=== PATIENT | male | born 1940 | race Caucasian/White ===

== ENCOUNTER 2018-04-11 07:55 | Day surgery (SDC) | payer MEDICARE, OTHER, SELFPAY ==
[2018-04-11] MEDS: SODIUM CHLORIDE 0.9% 1,000 ML 200 ML IV (08:15)
[2018-04-11 08:19] VITALS: BP 153/84; PULSE 54; RESP 15; TEMP 36.3; O2SAT 99; BMI 32.0
--- NOTE | 2018-04-11 09:26 | PM.HP.1 ---
History of Present Illness Date Patient Seen: 04/11/18 Time Patient Seen: 09:19 Chief complaint: COLONOSCOPY [id number] Narrative: Patient is here for screening colonoscopy. He has a history of polyps. His last: Exam was 9 years ago. No family history. Patient History Medical History History of nephrolithiasis (Chronic) Hypothyroidism (Chronic) Waldenstroms macroglobulinemia (Resolved) Surgical History History of carpal tunnel release of both wrists (Resolved) Family & Social History Social History: household members spouse Meds Home Medications Medication Instructions Recorded Confirmed Type Ascorbic Acid/Bioflavonoid 1 tab PO Q DAY #0 02/19/13 04/11/18 History (#VITAMIN C) LOVASTATIN (MEVACOR) 40 mg PO QDAYPM #0 02/19/13 04/11/18 History MULTIVITAMIN (#MULTIPLE VITAMINS) 1 cap PO Q DAY #0 02/19/13 04/11/18 History citalopram 20 mg PO QDAY #0 02/19/13 04/11/18 History gabapentin [Neurontin] 1,200 mg PO TID #0 02/19/13 04/11/18 History ibuprofen 200 mg PO Q4HP PRN #0 02/19/13 04/11/18 History metoprolol tartrate 12.5 mg PO BID #0 02/19/13 04/11/18 History EpiPen 2-De 0.3 % IM PRN PRN 04/11/18 04/11/18 History Probiotic-10 04/11/18 History desonide 0.05 % TOPICAL PRN PRN 04/11/18 04/11/18 History ketoconazole 2 % TOPICAL PRN PRN 04/11/18 04/11/18 History Allergies Allergy/AdvReac Type Severity Reaction Status Date / Time morphine [MORPHINE] Allergy Intermediate projectile Verified 04/11/18 08:59 vomiting Review of Systems Review of Systems All systems reviewed & are unremarkable except as noted in HPI and below Eyes Comments: Wears glasses Respiratory Comments: Uses CPAP machine for sleep apnea Integumentary/Breasts Comments: Psoriasis but the head and face Exam Vital Signs (past 8 hours): - 04/11/18 08:19 Temperature 97.3 F L Pulse Rate 54 L Respiratory Rate 15 Blood Pressure 153/84 H Pulse Oximetry 99 Oxygen Delivery Method Room Air Narrative Exam Narrative: Operative no apparent distress. Lungs are clear no rales or rhonchi heart regular rate and rhythm. He has a 2/6 systolic murmur. Abdomen is protuberant soft nontender without mass. Patient is alert and oriented x3. Assessment & Plan (1) Screening for colon cancer: Current visit: Yes Status: Acute Plan: Assessment/Plan Narrative: Will will proceed with colonoscopy. I have discussed the procedure and the rationale with the patient including risks of bleeding, perforation which would necessitate a major operation, failure to find remove all lesions and the potential to tattoo. They appeared to understand and wished to proceed.
--- NOTE | 2018-04-11 09:33 | PM.PREOP ---
Pre-operative Note Interval Note Pre-op Check: History & Physical exam performed today H&P completed within 30 days and has changed as indicated here:: None ASA Class (for procedural sedation): II
[2018-04-11] MEDS: ONDANSETRON 4 MG/2 ML INJ IV (09:38)
[2018-04-11] MEDS: fentaNYL 250 MCG/5 ML INJ IV (09:54)
[2018-04-11] MEDS: MIDAZOLAM 5 MG/5 ML VIAL IV (09:55)
[2018-04-11 10:08] VITALS: BP 138/92; PULSE 58; PULSE 60; RESP 15; TEMP 36.6; O2SAT 97
--- NOTE | 2018-04-11 10:10 | P.OP.ENDO_ITS ---
Operative Date/Time/Diagnoses - Date of procedure: 04/11/18 Time of procedure: 10:06 Pre-op diagnosis: Screening for colon cancer. Last exam 9 years ago. Personal history of polyps. Post-op diagnosis: same (Sigmoid diverticulosis. Internal hemorrhoids. Left sided prostate nodule) Procedure & Clinicians Study performed: Colonoscopy Same procedure as scheduled: Yes Indications: Screening. Surgeon: Nick Crook Procedure Notes SCOAP/Timeout: Performed Procedure in detail: The patient was placed in the left lateral decubitus position and underwent IV sedation directed by the surgeon consisting of fentanyl and Versed. Digital exam was remarkable for a nodule in the left side of his prostate. The scope was inserted and advanced through the rectum into the sigmoid, descending, transverse, and ascending colon. Sigmoid diverticulosis was noted. There was some tortuosity and stretching and I had to use the scope stiffener and apply pressure in order to get into the cecum.. The cecum was reached identified by the ileocecal valve and the appendiceal opening. The ileocecal valve was[not] cannulated. The scope was gradually brought out. No Polyps were found. The scope ultimately was retroflexed in the rectum. The appearance was[remarkable for internal hemorrhoids with mild irritation]. The scope was removed and the patient tolerated the procedure well. Prep was very good. Scope withdrawal time: 10.5 min Sedation minutes: 29 Findings: diverticulosis (Sigmoid), internal hemorrhoids and possible cancer ( Of the prostate) Recommendations: Colonscopy in 5 years (If in good health.) and Other recommendation (Talked to your family doctor or see a urologist regarding the nodule on your prostate.)
[2018-04-11 10:14] VITALS: BP 134/62; PULSE 60; RESP 18; O2SAT 97
--- NOTE | 2018-04-11 10:14 | SUR.PHASEI ---
patient fully awake and alert drinking beverage without difficuly. Transitioned to phase II
[2018-04-11 10:25] VITALS: BP 129/74; PULSE 81; RESP 15; TEMP 36.2; O2SAT 97
== END 2018-04-11 10:47 | disposition home or self-care (01) ==
PROVIDERS: PCP Family Medicine; Visit Provider Specialist
PROC: 0DJD8ZZ Inspection of Lower Intestinal Tract, Via Natural or Artificial Opening Endoscopic (ICD-10-PCS; CPT 45378; principal; 2018-04-11 08:45)
DX: Z12.11 Encounter for screening for malignant neoplasm of colon (principal); Z86.010 Personal history of colon polyps; G47.33 Obstructive sleep apnea (adult) (pediatric); E03.9 Hypothyroidism, unspecified; K64.8 Other hemorrhoids; N40.2 Nodular prostate without lower urinary tract symptoms
CPT/HCPCS: G0105; 45378; 99152; 99153; J2250; J2405; J3010

== ENCOUNTER → 2018-06-07 08:37 | Outpatient (CLI) | payer MEDICARE, OTHER, SELFPAY ==
--- NOTE | 2018-06-07 08:42 | DI.RAD.S_ITS ---
PROCEDURE: XR KUB INDICATIONS: KIDNEY STONES TECHNIQUE: One view of the abdomen acquired. COMPARISON: None. FINDINGS: Surgical changes and devices: None. Bowel: Bowel gas pattern is normal. Soft tissues: There are multiple irregular calcifications projecting over the left kidney measuring up to 14 mm. No calcifications project over the expected location of the right kidney or the ureters. Bones: No suspicious bony lesions. Lumbar spine degenerative change. IMPRESSION: Multiple left renal calcifications measuring up to 14 mm. 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 Dictated by: Ra Quintana M.D. on 06/07/2018 at 10:17 Approved by: Ra Quintana M.D. on 06/07/2018 at 10:19
== END ==
PROVIDERS: PCP Family Medicine; Visit Provider Specialist
DX: N40.1 Benign prostatic hyperplasia with lower urinary tract symptoms (principal)
CPT/HCPCS: 36415; 74018; 84153

== ENCOUNTER → 2018-06-29 11:26 | Outpatient (CLI) | payer MEDICARE, OTHER, SELFPAY ==
[2018-06-29 11:49] LABS: Add Manual Diff / Slide Review NO; Basophils Percent Auto 0.7 % (0-2); Eosinophils Percent Auto 2.5 % (2-4); Hematocrit 40.8 % (41-53); Hemoglobin 13.7 g/dL (13.5-17.5); Lymphocytes Percent Auto 31.9 % (25-40); Mean Corpuscular HGB Conc 33.5 % (30-36); Mean Corpuscular Hemoglobin 32.9 PG (26-34); Mean Corpuscular Volume 98.2 fL (80-100); Monocytes Percent Auto 9.6 % (3-14); Neutrophils Absolute Auto 2700 /uL (3000-5900); Neutrophils Percent Auto 55.3 % (50-75); Platelet Count 222 X10^3/uL (150-400); Red Blood Cell Count 4.16 X10^6/uL (4.5-5.9); Red Cell Distribution Width 13.7 % (11.6-14.8); White Blood Cell Count 4.9 X10^3/uL (4.5-11.0)
[2018-06-29 12:03] LABS: Alanine Aminotransferase 34 IU/L (21-72); Albumin 4.2 g/dL (3.5-5.0); Albumin Globulin Ratio 1.4 (1.0-2.8); Alkaline Phosphatase 70 U/L (38-126); Aspartate Aminotransferase 26 IU/L (17-59); Bilirubin Total 0.7 mg/dL (0.2-1.3); Blood Urea Nitrogen 16 mg/dL (9-20); Calcium 9.5 mg/dL (8.4-10.2); Carbon Dioxide 30 mmol/L (22-32); Chloride 103 mmol/L (98-107); Estimated Glomerular Filt Rate > 60.0 mL/min (>60); Globulin 2.9 g/dL (1.7-4.1); Glucose 99 mg/dL (80-110); HEMOLYSIS < 15 (0-50); Lactate Dehydrogenase 468 U/L (313-618); Potassium 4.5 mmol/L (3.4-5.1); Sodium 141 mmol/L (137-145); Total Protein 7.1 g/dL (6.3-8.2)
[2018-07-01 14:59] LABS: Free Kappa Light Chain 17.6 mg/L (3.3-19.4); Free Kappa/ Lambda Ratio 1.65 (0.26-1.65); Free Lambda 10.7 mg/L (5.7-26.3)
[2018-07-01 15:54] LABS: Immunoglobulin M, Quantitative 278 mg/dL (48-271)
== END ==
PROVIDERS: PCP Family Medicine; Visit Provider Internal Medicine Hematology & Oncology
DX: C88.0 Waldenstrom macroglobulinemia (principal)
CPT/HCPCS: 36415; 80053; 82784; 83615; 83883; 85025

== ENCOUNTER → 2018-12-19 11:58 | Outpatient (CLI) | payer MEDICARE, OTHER, SELFPAY ==
[2018-12-19 14:08] LABS: Add Manual Diff / Slide Review NO; Basophils Absolute Auto 0 /uL (0-100); Eosinophils Absolute Auto 200 /uL (0-450); Eosinophils Percent Auto 3.4 % (2-4); Hematocrit 42.4 % (41-53); Hemoglobin 14.1 g/dL (13.5-17.5); Lymphocytes Absolute Auto 1500 /uL (1100-4500); Lymphocytes Percent Auto 30.4 % (25-40); Mean Corpuscular HGB Conc 33.3 % (30-36); Mean Corpuscular Hemoglobin 32.4 PG (26-34); Mean Corpuscular Volume 97.2 fL (80-100); Monocytes Absolute Auto 500 /uL (0-900); Monocytes Percent Auto 10.6 % (3-14); Neutrophils Absolute Auto 2600 /uL (1500-7000); Neutrophils Percent Auto 54.6 % (50-75); Platelet Count 239 X10^3/uL (150-400); Red Blood Cell Count 4.36 X10^6/uL (4.5-5.9); Red Cell Distribution Width 13.3 % (11.6-14.8); White Blood Cell Count 4.8 X10^3/uL (4.5-11.0)
[2018-12-19 14:15] LABS: Alanine Aminotransferase 36 IU/L (21-72); Albumin 4.5 g/dL (3.5-5.0); Albumin Globulin Ratio 1.6 (1.0-2.8); Alkaline Phosphatase 76 U/L (38-126); Aspartate Aminotransferase 34 IU/L (17-59); BUN Creatinine Ratio 14.4 (6-22); Bilirubin Total 0.6 mg/dL (0.2-1.3); Blood Urea Nitrogen 13 mg/dL (9-20); Calcium 9.8 mg/dL (8.4-10.2); Carbon Dioxide 27 mmol/L (22-32); Chloride 102 mmol/L (98-107); Estimated Glomerular Filt Rate > 60.0 mL/min (>60); Globulin 2.9 g/dL (1.7-4.1); Glucose 82 mg/dL (80-110); HEMOLYSIS < 15 (0-50); Potassium 4.4 mmol/L (3.4-5.1); Sodium 140 mmol/L (137-145); Total Protein 7.4 g/dL (6.3-8.2)
[2018-12-21 13:22] LABS: Immunoglobulin M, Quantitative 301 mg/dL (48-271)
== END ==
PROVIDERS: PCP Family Medicine; Visit Provider Nurse Practitioner Gerontology
DX: C88.0 Waldenstrom macroglobulinemia (principal)
CPT/HCPCS: 36415; 80053; 82784; 85025

== ENCOUNTER → 2019-01-15 10:12 | Outpatient (CLI) | payer MEDICARE, OTHER, SELFPAY ==
--- NOTE | 2019-01-15 10:14 | DI.RAD.S_ITS ---
PROCEDURE: XR KUB INDICATIONS: KIDNEY STONES TECHNIQUE: One view of the abdomen acquired. COMPARISON: [facility], US, ABDOMEN COMPLETE, 04/03/2012, 13:08. [facility], US, RENAL OR RETROPERITONEAL LIMIT, 01/10/2018, 9:09. [facility], CR, XR KUB, 06/07/2018, 8:25. FINDINGS: Surgical changes and devices: None. Bowel: Bowel gas pattern is normal. Soft tissues: No new suspicious abdominal calcifications, and the calcifications present bilaterally are most consistent with renal collecting system calculi or medullary calcifications by plain film appearance. No prior CT is available for review that includes this area. There are 3 at the middle and lower thirds of the left kidney and one at the lower third of the right kidney, each measuring approximately 5-8 mm in diameter. Visualized solid organ contours appear normal in size. Bones: No suspicious bony lesions. IMPRESSION: Bilateral collecting system calculi or medullary calcifications appear present without definite policy change clerks supervisor time from the prior plain film imaging 06/07/18. As noted, no prior CT scan is available for review. The number of calculi likely has increased with reference to the ultrasound report from the 04/03/12 examination when only one calcification was seen at each kidney. Dictated by: Dhaval Pimentel M.D. on 01/15/2019 at 11:18 Approved by: Dhaval Pimentel M.D. on 01/15/2019 at 11:22
== END ==
PROVIDERS: PCP Family Medicine; Visit Provider Specialist
DX: N20.0 Calculus of kidney (principal)
CPT/HCPCS: 74018

== ENCOUNTER → 2019-01-22 09:36 | Outpatient (CLI) | payer MEDICARE, OTHER, SELFPAY ==
--- NOTE | 2019-01-22 11:06 | DI.CT.S_ITS ---
PROCEDURE: CT KIDNEY URETER BLADDER (KUB) INDICATIONS: KIDNEY STONES left flank pain TECHNIQUE: Noncontrast 5 mm thick sections acquired from the diaphragms to the symphysis. 5 mm thick coronal and sagittal reformats were then performed. For radiation dose reduction, the following was used: automated exposure control, adjustment of mA and/or kV according to patient size. COMPARISON: [facility], , CT THORAX/ABDOMEN/PELVIS W/WO CONTRAST, 07/24/2003, 10:14. FINDINGS: Image quality: Excellent. Lung bases: There is a 4 mm noncalcified pulmonary nodule within the right lower lobe on axial image 2 series 6. Moderate coronary artery calcifications are noted. Urinary system: The kidneys appear diminutive in size bilaterally. There are multiple bilateral nonobstructing nephroliths, with the largest nephrolith identified in the left kidney and measuring up to 9 mm in greatest diameter. No hydronephrosis. There is mild bilateral perinephric fat stranding. There are left greater than right bilateral subcentimeter peripelvic cysts. No obstruction urolithiasis identified. No ureteral dilatation. There is mild thickening of the bladder wall. Other solid organs: Liver is normal in size. There is a 4 mm hypodense focus in the posterior right hepatic lobe on axial image 17 of series 3 (hepatic segment 7), which is too small to fully characterize on this exam likely represents hepatic cyst or hemangioma. Gallbladder is unremarkable. There are diffuse punctate calcifications of the pancreatic parenchyma, consistent with a sequela of prior chronic pancreatitis. Spleen is normal in size. No adrenal nodules. Peritoneum and bowel: Unenhanced bowel loops demonstrate normal wall thickness and caliber. No free fluid or air. Large stool burden noted within the colon. Normal appendix best seen on axial image 52 of series 3. There is sigmoid colon diverticulosis without evidence of acute diverticulitis. Nodes and vessels: No retroperitoneal or mesenteric adenopathy by size criteria. Aorta and inferior vena cava are normal in caliber. There is moderate calcified and noncalcified plaque of the abdominal aorta and branch vessels. Abdominal wall: There is a 1.0 cm fat-containing umbilical hernia. Pelvis: No free pelvic fluid. There are bilateral fat-containing indirect inguinal hernias. There are prominent prostatic and penile calcifications. Bones: No suspicious bony lesions. No vertebral body compression fractures. There are moderate multilevel degenerative changes of the imaged thoracolumbar spine. IMPRESSION: 1. Bilateral nonobstructing nephrolithiasis, with the largest nephrolith measuring up to 9 mm within the left kidney. No hydronephrosis or obstructive urolithiasis identified bilaterally. 2. Mild diffuse bladder wall thickening, which can be seen with chronic bladder outlet obstruction or a cystitis. Clinical correlation with urinalysis suggested. 3. 4 mm noncalcified right lower lobe pulmonary nodule. Consider followup CT of the chest in 12 months if the patient has risk factors for the development of pulmonary malignancy (such as a history of smoking). 4. Additional findings as described above, including a fat-containing umbilical hernia, bilateral fat-containing indirect inguinal hernias, and colonic diverticulosis without evidence of acute diverticulitis. Dictated by: Hardy Bermudez M.D. on 01/22/2019 at 15:11 Approved by: Hardy Bermudez M.D. on 01/22/2019 at 16:06
== END ==
PROVIDERS: PCP Family Medicine; Visit Provider Specialist
DX: N20.0 Calculus of kidney (principal); R10.9 Unspecified abdominal pain; I25.10 Atherosclerotic heart disease of native coronary artery without angina pectoris; R91.1 Solitary pulmonary nodule; K42.9 Umbilical hernia without obstruction or gangrene; K40.20 Bilateral inguinal hernia, without obstruction or gangrene, not specified as recurrent; K57.30 Diverticulosis of large intestine without perforation or abscess without bleeding; M47.815 Spondylosis without myelopathy or radiculopathy, thoracolumbar region
CPT/HCPCS: 74176

== ENCOUNTER → 2019-08-31 10:23 | Outpatient (CLI) | payer MEDICARE, OTHER, SELFPAY ==
--- NOTE | 2019-08-31 | DI.RAD.S_ITS ---
PROCEDURE: XR KUB INDICATIONS: KIDNEY STONES TECHNIQUE: One view of the abdomen acquired. COMPARISON: [facility], CT, CT KIDNEY URETER BLADDER (KUB), 01/22/2019, 9:42. [facility], CR, XR KUB, 01/15/2019, 10:31. FINDINGS: Surgical changes and devices: None. Bowel: Bowel gas pattern is normal. Soft tissues: Grossly unchanged bilateral nephrolithiasis measuring up to 9 mm on the left and up to 6 mm on the right. Presumed right-sided pelvic phleboliths. Bones: No suspicious bony lesions. IMPRESSION: Unchanged appearance of bilateral nephrolithiasis. Dictated by: Javier Espinosa M.D. on 08/31/2019 at 16:48 Approved by: Javier Espinosa M.D. on 08/31/2019 at 16:49
== END ==
PROVIDERS: Family Provider Family Medicine; PCP Family Medicine; Visit Provider Specialist
DX: N40.1 Benign prostatic hyperplasia with lower urinary tract symptoms (principal); N20.0 Calculus of kidney; C88.0 Waldenstrom macroglobulinemia
CPT/HCPCS: 36415; 74018; 84153

== ENCOUNTER → 2019-12-10 09:15 | Outpatient (CLI) | payer MEDICARE, OTHER, SELFPAY ==
[2019-12-10 09:41] LABS: Add Manual Diff / Slide Review NO; Basophils Absolute Auto 0 /uL (0-100); Basophils Percent Auto 0.9 % (0-2); Eosinophils Absolute Auto 200 /uL (0-450); Eosinophils Percent Auto 3.9 % (2-4); Hematocrit 39.6 % (41-53); Hemoglobin 13.5 g/dL (13.5-17.5); Lymphocytes Absolute Auto 1400 /uL (1100-4500); Lymphocytes Percent Auto 32.3 % (25-40); Mean Corpuscular HGB Conc 34.1 % (30-36); Mean Corpuscular Hemoglobin 32.9 PG (26-34); Mean Corpuscular Volume 96.5 fL (80-100); Monocytes Absolute Auto 500 /uL (0-900); Neutrophils Absolute Auto 2200 /uL (1500-7000); Neutrophils Percent Auto 51.9 % (50-75); Platelet Count 222 X10^3/uL (150-400); Red Cell Distribution Width 13.4 % (11.6-14.8); White Blood Cell Count 4.2 X10^3/uL (4.5-11.0)
[2019-12-12 14:24] LABS: Free Kappa Light Chain 16.9 mg/L (3.3-19.4); Free Kappa/ Lambda Ratio 1.24 (0.26-1.65); Free Lambda 13.6 mg/L (5.7-26.3)
[2019-12-12 14:29] LABS: Immunoglobulin M, Quantitative 278 mg/dL (50-300)
== END ==
PROVIDERS: Family Provider Family Medicine; PCP Family Medicine
DX: C88.0 Waldenstrom macroglobulinemia (principal)
CPT/HCPCS: 36415; 82784; 83883; 85025

== ENCOUNTER → 2020-01-25 09:31 | Outpatient (CLI) | payer MEDICARE, OTHER, SELFPAY ==
--- NOTE | 2020-01-25 | DI.RAD.S_ITS ---
PROCEDURE: XR KUB INDICATIONS: KIDNEY STONES TECHNIQUE: One view of the abdomen acquired. COMPARISON: [facility], , XR KUB, 08/31/2019, 10:45. FINDINGS: Surgical changes and devices: None. Bowel: Bowel gas pattern is normal. Soft tissues: No suspicious abdominal calcifications. Unchanged appearance of bilateral renal calcification. Visualized solid organ contours appear normal in size. Bones: No suspicious bony lesions. IMPRESSION: Unchanged appearance of bilateral renal calcifications. Dictated by: Galilea Jasso M.D. on 01/25/2020 at 12:55 Approved by: Galilea Jasso M.D. on 01/25/2020 at 12:57
== END ==
PROVIDERS: Family Provider Family Medicine; PCP Family Medicine; Referring Provider Specialist; Visit Provider Specialist
DX: N20.0 Calculus of kidney (principal)
CPT/HCPCS: 74018

== ENCOUNTER 2020-09-09 10:01 | Emergency (ER) | payer MEDICARE, OTHER, SELFPAY ==
[2020-09-09 10:12] VITALS: BP 164/77; PULSE 56; RESP 16; TEMP 36.7; O2SAT 97; BMI 31.3
--- NOTE | 2020-09-09 10:19 | ED_ITS ---
HPI - Extremity Problem General Chief complaint: Extremity Problem,Nontraumatic Stated complaint: Right ankle pain Time Seen by Provider: 09/09/20 10:19 Source: patient Mode of arrival: Family Vehicle Limitations: no limitations History of Present Illness HPI Narrative: 80-year-old male comes to the emergency department complaint of right ankle pain. 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 Patient states he was walking when he felt a sudden sharp pain. He continues to have pain with weight-bearing, he has increased pain with the eversion. He denies any ecchymosis or skin changes but does have swelling. There is no warmth or erythema. Patient does not have any pain or injury elsewhere. He normally wears a brace on his lower extremity secondary to pain and osteoarthritis. He has been trying to use a cane which is somewhat helpful but does require little extra assistance. He denies any anticoagulants. Related Data Home Medications Medication Instructions Recorded Confirmed LOVASTATIN (MEVACOR) 40 mg PO QDAYPM #0 02/19/13 06/25/20 MULTIVITAMIN (#MULTIPLE VITAMINS) 1 cap PO Q DAY #0 02/19/13 06/25/20 citalopram 20 mg PO QDAY #0 02/19/13 06/25/20 gabapentin [Neurontin] 1,200 mg PO TID #0 02/19/13 06/25/20 ibuprofen 200 mg PO Q4HP PRN #0 02/19/13 06/25/20 metoprolol tartrate 12.5 mg PO BID #0 02/19/13 06/25/20 EpiPen 2-De 0.3 % IM PRN PRN 04/11/18 06/25/20 desonide 0.05 % TOPICAL PRN PRN 04/11/18 06/25/20 levothyroxine [Synthroid] 125 mcg PO DAILY 07/10/18 06/25/20 Allergies Allergy/AdvReac Type Severity Reaction Status Date / Time bee venom protein (honey bee) Allergy Severe Anaphylaxis Verified 09/09/20 10:11 morphine [MORPHINE] Allergy Intermediate projectile Verified 09/09/20 10:11 vomiting Review of Systems Review of Systems ROS Unobtainable: All systems reviewed & are unremarkable except as noted in HPI and below Patient History Medical History Alcohol abuse counseling and surveillance Excessive daytime sleepiness (~2006) History of nephrolithiasis Hypothyroidism Nocturnal hypoxemia Obstructive sleep apnea of adult (~2006) Snoring (~2006) Waldenstroms macroglobulinemia Surgical History History of carpal tunnel release of both wrists Social History marital status: household members: spouse lives independently: Yes occupational status: previously employed Smoking Status: Former smoker alcohol intake: former (reports complete abstention) substance use type: does not use Type(s) of exercise: none Smoking Status: Former smoker tobacco type: cigarettes alcohol intake frequency: 0-2 drinks per day Substance Use Type: does not use Exam Narrative Exam Narrative: GENERAL: Alert and oriented x three, well-nourished, well- appearing male in mild distress HEENT: Head normocephalic, atraumatic, EOMI, pupils reactive, face symmetric, moist mucous membranes NECK: Supple, full range of motion CARDIOVASCULAR: Regular rate and rhythm without murmurs, rubs or gallops. RESPIRATORY: Breath sounds equal bilaterally, no wheezes rales or rhonchi. ABDOMEN: Soft, nontender. Normoactive bowel sounds all 4 quadrants. No guarding or rebound, rigidity, no mass EXTREMITIES: Normal range of motion, no clubbing. Patient has mild bony tenderness over the lateral ankle, he does have significant swelling with no ecchymosis, no erythema or warmth. He does not have any other bony tenderness appreciated the foot. 2+ pulse, cap refill in all 5 toes with normal sensation throughout Neurovascularly intact NEUROLOGICAL: Cranial nerves II through XII grossly intact. Moving all extremities SKIN: Warm, dry, no petechiae, no rashes or lesions. Initial Vital Signs Initial Vital Signs: Vital Signs Temperature 98.0 F 09/09/20 10:12 Pulse Rate 56 L 09/09/20 10:12 Respiratory Rate 16 09/09/20 10:12 Blood Pressure 164/77 H 09/09/20 10:12 Pulse Oximetry 97 09/09/20 10:12 Course Orders Ordered: ED Orders 09/09/20 10:36 XR ankle RT min 3V Stat Vital Signs Vital signs: Vital Signs - 8 hr 09/09/20 11:38 Temperature 97.8 F Pulse Rate 60 Respiratory Rate 16 Blood Pressure 137/64 Pulse Oximetry 96 MDM - Extremity (Nontraumatic) Imaging Data Extremity x-ray #1: Radiologist's Impression: [address] [id number] ReportSigned Patient: Inder Lr DMR#: [id number]: [id number]:[id number]/Sex: 80 / MDate of Service: 09/09/20Loc: EDAccession Number: [id number] Procedure: XR ankle RT min 3V Ordering Provider: Maria Isabel Medley D.O. PROCEDURE: XR ANKLE RT MIN 3V INDICATIONS: right ankle pain, started while walking, + swelling TECHNIQUE: 3 views of the ankle were acquired. COMPARISON: [facility], , XR ANKLE 3 VIEWS WEIGHT BEARING RIGHT, 05/01/2020, 10:42. FINDINGS: Bones: There is generalized osteopenia. Severe degenerative changes are seen at the mortise joint with joint space narrowing, subchondral sclerosis, and marginal osteophyte formation. Anterior osteophytes could contribute to anterior osseous impingement. Multiple ossifications are seen surrounding the ankle that are suspicious for loose bodies. Small posterior and plantar calcaneal spurs are present. Overall, findings appear similar when compared to the prior radiographs from 05/01/2020. Soft tissues: Soft tissue edema is seen surrounding the ankle. IMPRESSION: 1. Multiple large ossifications surrounding the mortise joint are most likely intra-articular loose bodies related to degenerative changes or remote prior trauma, but a superimposed acute fracture is not entirely excluded. If symptoms continue, CT or MRI may be obtained for further evaluation. 2. Moderate to severe degenerative changes at the mortise joint. Dictated by: Freddie Fisher M.D. on 09/09/2020 at 10:15 Approved by: Freddie Fisher M.D. on 09/09/2020 at 10:22 [facility] Narrative Medical decision making narrative: Patient has severe degenerative changes on his x-ray, no obvious acute fracture but there is potential for occult fracture. Plan for walking boot and walker if patient does not have 1 at home and follow-up with primary care for repeat imaging and further follow-up or imaging as needed if not improving Discharge Plan Departure Patient Disposition: Home Clinical Impression: Ankle pain, right Instructions: DI for Ankle Pain Activity Restrictions/Additional Instructions: Follow-up with your physician in the next 7-10 days for recheck and repeat imaging. There is no clear fracture today, you do have significant degenerative changes but there is potential for a possible fracture. Use walker or cane as needed, continue using walking boot until seen by your physician unless you are asymptomatic. You may take Tylenol up to a 1000 mg every 8 hours as needed for pain along with your regular ibuprofen. Splint Care: Keep splint clean and dry. Elevated affected body part to decrease swelling. OK to use ice pack on the affected body part. Use for 15-20 minutes each time, for 5-6x per day. If you develop worsening pain, numbness, tingling, discoloration of the affected body part, loosen the splint by loosening the MANUELA wrap, and either see your doctor f or an urgent re-assessment, or return to the Emergency Department. Return to the Emergency Department for any new or worsening symptoms. Prescriptions: No Action gabapentin [Neurontin] 600 MG tablet 1,200 mg PO TID Qty: 0 RF: 0 citalopram 20 MG tablet 20 mg PO QDAY Qty: 0 RF: 0 ibuprofen 200 MG tablet 200 mg PO Q4HP PRN (Reason: Pain (Scale Score 1-3)) Qty: 0 RF: 0 metoprolol tartrate 25 MG tablet 12.5 mg PO BID Qty: 0 RF: 0 LOVASTATIN (MEVACOR) 40 mg PO QDAYPM Qty: 0 RF: 0 MULTIVITAMIN (#MULTIPLE VITAMINS) 1 cap PO Q DAY Qty: 0 RF: 0 EpiPen 2-De 0.3 % 0.3 % IM PRN PRN (Reason: Allergic Reaction) RF: 0 desonide 0.05 % 0.05 % Topical PRN PRN (Reason: Rash) RF: 0 levothyroxine [Synthroid] 125 mcg Tablet 125 mcg PO DAILY RF: 0 Referrals: Luda Brown MD [Primary Care Provider] -
--- NOTE | 2020-09-09 10:36 | DI.RAD.S_ITS ---
PROCEDURE: XR ANKLE RT MIN 3V INDICATIONS: right ankle pain, started while walking, + swelling TECHNIQUE: 3 views of the ankle were acquired. COMPARISON: [facility], CR, XR ANKLE 3 VIEWS WEIGHT BEARING RIGHT, 05/01/2020, 10:42. FINDINGS: Bones: There is generalized osteopenia. Severe degenerative changes are seen at the mortise joint with joint space narrowing, subchondral sclerosis, and marginal osteophyte formation. Anterior osteophytes could contribute to anterior osseous impingement. Multiple ossifications are seen surrounding the ankle that are suspicious for loose bodies. Small posterior and plantar calcaneal spurs are present. Overall, findings appear similar when compared to the prior radiographs from 05/01/2020. Soft tissues: Soft tissue edema is seen surrounding the ankle. IMPRESSION: 1. Multiple large ossifications surrounding the mortise joint are most likely intra-articular loose bodies related to degenerative changes or remote prior trauma, but a superimposed acute fracture is not entirely excluded. If symptoms continue, CT or MRI may be obtained for further evaluation. 2. Moderate to severe degenerative changes at the mortise joint. Dictated by: Freddie Fisher M.D. on 09/09/2020 at 10:15 Approved by: Freddie Fisher M.D. on 09/09/2020 at 10:22
[2020-09-09 11:38] VITALS: BP 137/64; PULSE 60; RESP 16; TEMP 36.6; O2SAT 96
== END 2020-09-09 12:04 | disposition home or self-care (01) ==
PROVIDERS: Emergency Provider Emergency Medicine; Family Provider Family Medicine; PCP Family Medicine
DX: M25.571 Pain in right ankle and joints of right foot (principal)
CPT/HCPCS: 29580; 73610; 99283

== ENCOUNTER → 2020-09-16 08:37 | Outpatient (CLI) | payer MEDICARE, OTHER, SELFPAY ==
--- NOTE | 2020-09-16 08:38 | DI.RAD.S_ITS ---
PROCEDURE: XR KUB INDICATIONS: kidney stones TECHNIQUE: One view of the abdomen acquired. COMPARISON: [facility], CR, XR KUB, 01/15/2019, 10:31. [facility], CR, XR KUB, 06/07/2018, 8:25. [facility], US, RENAL OR RETROPERITONEAL LIMIT, 01/10/2018, 9:09. [facility], CT, CT KIDNEY URETER BLADDER (KUB), 01/22/2019, 9:42. [facility], CR, XR KUB, 08/31/2019, 10:45. [facility], CR, XR KUB, 01/25/2020, 10:09. FINDINGS: Surgical changes and devices: None. Bowel: Bowel gas pattern is normal. Soft tissues: Multiple calcific densities projecting to the renal contour bilaterally, compatible with renal calculi. Overall, there is no significant change. Visualized solid organ contours appear normal in size. Bones: No suspicious bony lesions. IMPRESSION: Bilateral renal calculi are unchanged. Dictated by: Darian Yoder M.D. on 09/16/2020 at 9:48 Approved by: Darian Yoder M.D. on 09/16/2020 at 9:50
== END ==
PROVIDERS: Family Provider Family Medicine; PCP Family Medicine; Referring Provider Specialist; Visit Provider Specialist
DX: N20.0 Calculus of kidney (principal)
CPT/HCPCS: 74018

== ENCOUNTER → 2020-09-17 13:00 | Outpatient (CLI) | payer MEDICARE, OTHER, SELFPAY ==
[2020-09-17 14:36] LABS: Add Manual Diff / Slide Review NO; Basophils Absolute Auto 0 /uL (0-100); Basophils Percent Auto 0.8 % (0-2); Eosinophils Absolute Auto 200 /uL (0-450); Eosinophils Percent Auto 3.2 % (2-4); Hematocrit 40.5 % (41-53); Hemoglobin 13.4 g/dL (13.5-17.5); Lymphocytes Absolute Auto 1900 /uL (1100-4500); Lymphocytes Percent Auto 34.5 % (25-40); Mean Corpuscular HGB Conc 33.1 % (30-36); Mean Corpuscular Hemoglobin 32.7 PG (26-34); Mean Corpuscular Volume 98.9 fL (80-100); Monocytes Absolute Auto 500 /uL (0-900); Monocytes Percent Auto 9.2 % (3-14); Neutrophils Absolute Auto 2900 /uL (1500-7000); Neutrophils Percent Auto 52.3 % (50-75); Platelet Count 244 X10^3/uL (150-400); Red Cell Distribution Width 13.3 % (11.6-14.8); White Blood Cell Count 5.5 X10^3/uL (4.5-11.0)
[2020-09-17 15:19] LABS: Albumin 4.3 g/dL (3.5-5.0); Blood Urea Nitrogen 17 mg/dL (9-20); Calcium 9.7 mg/dL (8.4-10.2); Carbon Dioxide 32 mmol/L (22-32); Chloride 105 mmol/L (98-107); Estimated Glomerular Filt Rate > 60.0 mL/min (>60); Glucose 99 mg/dL (80-110); HEMOLYSIS < 15 (0-50); Potassium 4.4 mmol/L (3.4-5.1); Sodium 140 mmol/L (137-145)
== END ==
PROVIDERS: Family Provider Family Medicine; PCP Family Medicine; Referring Provider Orthopaedic Surgery Foot and Ankle Surgery; Visit Provider Orthopaedic Surgery Foot and Ankle Surgery
DX: Z01.818 Encounter for other preprocedural examination (principal); M19.171 Post-traumatic osteoarthritis, right ankle and foot
CPT/HCPCS: 36415; 80069; 85025; 93005; 93010

== ENCOUNTER → 2020-09-24 13:37 | Outpatient (CLI) | payer MEDICARE, OTHER, SELFPAY ==
--- NOTE | 2020-09-24 | DI.CT.S_ITS ---
PROCEDURE: CT LE RT WO CON INDICATIONS: Post-traumatic osteoarthritis, right ankle and foot TECHNIQUE: Noncontrast 1-1.5 mm axial sections acquired from above the tibiotalar joint to the bottom of the calcaneus, with coronal and sagittal reformats. COMPARISON: [facility], CR, XR ANKLE RT MIN 3V, 09/09/2020, 10:49. FINDINGS: Image quality: Excellent. Bones: No acute fracture identified. Diffuse osteopenia. Severe tibiotalar joint degeneration, with chronic deformity, subchondral sclerosis and spurring. There is also large focus of heterotopic ossification versus fracture fragment or loose body at the anterior tibiotalar joint. Posterior and plantar calcaneal spurring. Diffuse hindfoot and midfoot degenerative joint disease. There is diffuse interphalangeal and moderate 1st MTP joint degeneration. Corticated loose bodies or heterotopic calcification also seen at the tip of the medial and lateral malleolus Soft tissues: Widespread muscle atrophy. Scattered vascular calcifications. IMPRESSION: Severe diffuse osteoarthritis as detailed above. Bulky osteophyte formation. Subluxed appearance and chronic deformity of the tibiotalar articular surfaces. Heterotopic ossification versus fracture fragment or loose bodies at the anterior tibiotalar joint, tips of the medial and lateral malleoli. Diffuse muscle atrophy Dictated by: Javier Espinosa M.D. on 09/24/2020 at 15:12 Approved by: Javier Espinosa M.D. on 09/24/2020 at 15:19
== END ==
PROVIDERS: Family Provider Family Medicine; PCP Family Medicine; Referring Provider Orthopaedic Surgery Foot and Ankle Surgery; Visit Provider Orthopaedic Surgery Foot and Ankle Surgery
DX: M19.171 Post-traumatic osteoarthritis, right ankle and foot (principal); M62.571 Muscle wasting and atrophy, not elsewhere classified, right ankle and foot; N20.0 Calculus of kidney
CPT/HCPCS: 51798; 73700; 81002; 99213

== ENCOUNTER → 2020-10-17 12:15 | Outpatient (CLI) | payer MEDICARE, OTHER, SELFPAY | PROVIDERS: PCP Family Medicine; Referring Provider Orthopaedic Surgery Foot and Ankle Surgery; Visit Provider Orthopaedic Surgery Foot and Ankle Surgery | DX: Z01.818 Encounter for other preprocedural examination (principal) ==

== ENCOUNTER → 2020-12-03 08:58 | Outpatient (CLI) | payer MEDICARE, OTHER, SELFPAY ==
[2020-12-03 11:38] LABS: COVID19 -Nasal RAPID Negative (Negative)
== END ==
PROVIDERS: PCP Family Medicine; Visit Provider Nurse Practitioner Family
DX: Z01.812 Encounter for preprocedural laboratory examination (principal); Z20.822 Contact with and (suspected) exposure to COVID-19
CPT/HCPCS: 87635; C9803

== ENCOUNTER 2020-12-05 06:09 | Day surgery (SDC) | payer MEDICARE, OTHER, SELFPAY ==
[2020-12-05] VITALS (8 sets, daily range): BP systolic 109–132; BP diastolic 52–82; PULSE 55–74; RESP 13–16; TEMP 36.6–37.3; O2SAT 91–98; BMI 32.1
--- NOTE | 2020-12-05 | DI.RAD.S_ITS ---
PROCEDURE: XR ANKLE RT MIN 3V INDICATIONS: ANKLE FUSION TECHNIQUE: 6 views of the ankle were acquired. COMPARISON: [facility], , XR ANKLE RT MIN 3V, 09/09/2020, 10:49. FINDINGS: Spot fluoroscopic intraoperative images demonstrating plate and screw fixation of the tibiotalar joint. Expected intraoperative alignment Dictated by: Javier Espinosa M.D. on 12/05/2020 at 17:39 Approved by: Javier Espinosa M.D. on 12/05/2020 at 17:41
[2020-12-05] MEDS: LACTATED RINGERS 1,000 ML 42 ML IV (07:18)
--- NOTE | 2020-12-05 07:35 | PM.PREOP ---
Pre-operative Note COVID-19 COVID-19 status: Negative Interval Note History & Physical reviewed/Exam performed by Physician: Yes Changes to H&P: No
[2020-12-05] MEDS: CEFAZOLIN 2 GM/100 ML FROZ.PIGGY IV (08:01)
--- NOTE | 2020-12-05 08:08 | SUR.PREOP ---
Block start time [0742] . Monitoring initiated and maintained throughout procedure. Oxygen and medications given per anesthesiologist instructions. Patient remained stable throughout procedure, no adverse reactions noted. Block end time [0757]. All medications administered by Dr Villalpando
--- NOTE | 2020-12-05 08:30 | SUR.OPER ---
Supine on padded OR bed, head on pillow, arms secured on padded arm boards at <90 degrees abduction, legs uncrossed, safety belt at torso, bump under right hip, tape over blanket over left lower leg, right leg sterile draped and in control of the surgeon.
--- NOTE | 2020-12-05 08:34 | PM.PROC.1 ---
Procedures Date/Time Date of procedure: 12/05/20 Time of procedure: 07:40 General Procedure description: Ultrasound guided popliteal sciatic nerve block for post op pain control after right ankle fusion by Dr. Guido. Risk and benefits of procedure discussed with patient. ASA monitoring applied to patient. Oxygen given via nasal cannula. 2 mg Versed and 50 mcg fentanyl given for procedural sedation. Skin site was prepped with chlorhexidine and allowed to fully dry. Sterile gloves, mask, hat and probe cover were used to maintain sterility. 2% lidocaine and 30ga needle was used to make a small skin wheal at needle insertion site. Under ultrasound guidance, a 21ga 100mm Pajunk needle was directed near the division of the sciatic nerve into tibial and peroneal nerve in the popliteal fossa (lateral approach). Patient reported no parasthesias. After negative aspiration, 20 mL 0.5% ropivicaine and 5mg dexamethasone were injected around sciatic nerve. Patient tolerated procedure well. Procedure was repeated in similar fasion for saphenous nerve block at the level of mid thigh. Sterile prep. Using US guidance, 100mm Pajunk needle was directed into adductor canal near femoral artery. After negative aspiration, 20mL 0.5% ropivacaine and 5mg dexamethasone were injected. No parasthesias reported. Procedure tolerated well. Upper photo: Sciatic nerve at popliteal fossa Lower photo: saphenous nerve and femoral artery (adductor canal) at level of mid thigh
[2020-12-05] MEDS: BUPIVACAINE 0.5% W/ EPI (PF) 30 ML VIAL INJ (09:04)
[2020-12-05] MEDS: OXYCODONE/ACETAMINOPHEN 5/325 TABLET 1 TAB PO (11:15)
--- NOTE | 2020-12-05 11:48 | P.OP_ITS ---
Operative Date/Time/Diagnoses Date of procedure: 12/05/20 Time of procedure: 08:00 Pre-op diagnosis: right ankle arthritis, posttraumatic Post-op diagnosis: same Procedure & Clinicians Procedure: right ankle fusion open a CPT code 81535 bone graft right proximal tibia, large CPT code 74680-18 tendo Achilles lengthening CPT code 37278-01 Same procedure as scheduled: Yes Indications: 80-year-old male with chronic right ankle pain and varus arthritis. He has been using a custom carbon-fiber dynamic AFO that helped him quite a lot but he still has significant pain. He has been indicated for ankle fusion. The risks and benefits of the procedure have been discussed with the patient even opportunity to ask questions. The risks of surgery include but are not limited to infection, malunion, nonunion, persistence of pain, damage to nerves and blood vessels, posttraumatic arthritis, DVT, PE, cardiopulmonary complications and . The patient expressed a thorough understanding of the risks and benefits of surgery and has elected to proceed. Consent was signed. we have discussed using autograft from his tibia to aid in the fusion. We discussed the possibility of an Achilles lengthening for positioning. Surgeon: Monique Guido [employer] Cook: Luis Jimenez Anesthesia Type: General, Peripheral nerve block and Local Operative Notes Findings: End-stage arthritis tibiotalar joint with the multiple loose bodies anteriorly and laterally. Varus ankle arthritis, Tight ankle joint require tendo-Achilles lengthening Closure Type: primary Specimen(s): none sent Prosthetic devices, grafts, tissues, transplants, or devices: Arthrex anterior ankle plate and screws 4.5 screws locking and 5.5 lag separate 7.0 headless compression screw from the Arthrex set- 50mm Estimated Blood Loss (mL): 100 Blood products transfused: none Tourniquet time (min): 110 Procedure in detail: patient was seen in the preoperative area the site of surgery was marked informed consent confirmed. The patient underwent a preoperative regional block by the anesthesia team for postoperative pain control. He was brought back to the operating room placed the patient supine on operative table. Bony problems well padded a SCD was placed on the contralateral lower extremity. Well-padded thigh tourniquet was placed. General anesthetic was administered. The right lower extremities prepped and draped in standard sterile fashion. A formal time-out procedure was performed confirming the patient's side and site of surgery administration of appropriate preoperative antibiotics. All were in agreement. Esmarch was used for exsanguination the tourniquet elevated to 250 mm of mercury. standard anterior approach was marked of the ankle just lateral to the tibial crest down to the level of the talonavicular joint. This taken to the skin. The dissection was carried between the EHL and EDL. The neurovascular bundle was swept medially with the EHL. This brought us down onto the ankle joint this was subperiosteal dissected. Anterior osteophytes were removed. Osteotome was removed the anterior lip of the distal tibia. The joint was mobilized and prepared. The osteotomes and burs were used treat removed the remainder of the cartilage from the tibiotalar joint with attention torn to the medial and lateral gutter a loose as well. the ankle was still tight getting to a plantar grade position so a tendo-Achilles lengthening was performed in the standard fashion. Tendo-Achilles lengthening was performed with 3 Pendleton style incisions do the varus deformity. the distal and proximal ones were performed with barbara sections to the medial side in the central incision with a barbara section to the lateral side. This did provide good stretch to allow positioning neutrally. Once this was completed the joint was prepped again with the osteotomes and bur. Then a 3.5 drill was used to prepare the joint surfaces after the 1st irrigation was completed. At this point attention was turned to the proximal tibial bone graft. A lateral approach to this between Gerdy's and the tibial tubercle was drawn out taken down through the skin subcutaneous tissues. Fascia was opened. Drill holes were used to outline the osteotomy sites and 1/4 inch osteotome to make the cortical window. Curette was used to obtain the bone about 10 cc of excellent cancellous bone was obtained this was placed into the fusion site at the ankle. then the ankle was pinned in it foot plantigrade alignment this was checked on x-rays and then the plate was secured to the talus and tibia. A pin from the medial tibia into the talus was also placed to help hold position. Screws were placed down into the talus and then into the tibia. The plate did not compress down to the bone as much as usual. A little more distal tibia bone was taken off, and different holes were used for the nonlocking screws, but this did not change it. Soft tissues were recessed and it was not felt that the plate would not be a too prominent. so it was secured with locking screws. A separate headless lag screw 7 0 screw was drilled from the medial tibia into the talus over the wire. This was measured for a 50mm in place. At next the a locking screws were placed in the shaft. Final x-rays were taken AP and lateral planes confirming appropriate alignment. The tourniquet was released hemostasis was achieved and the wounds were closed in layered fashion with 2-0 Vicryl 4-0 Monocryl and 3-0 nylon. A well-padded bulky Milan style splint was placed in the patient was woken from anesthesia and taken to recovery room in good condition. There no immediate complications from this procedure. All counts were correct. Complications: none Post-operative Condition: stable Disposition: PACU Plan for aftercare: nonweightbearing elevate above the heart level 1st 2 weeks after surgery to reduce soft tissue swelling and help control pain. Will start aspirin for DVT prophylaxis on postop day 1. prescriptions for oxycodone and Toradol. Follow-up in the clinic as scheduled. Sutures will stay in place at least 2 weeks and will be switched to a cast. Nonweightbearing 8-10 weeks
== END 2020-12-05 12:21 | disposition home or self-care (01) ==
PROVIDERS: PCP Family Medicine; Referring Provider Family Medicine; Visit Provider Orthopaedic Surgery Foot and Ankle Surgery
PROC: (CPT 27870; principal; 2020-12-05 07:45)
DX: M19.171 Post-traumatic osteoarthritis, right ankle and foot (principal); M21.171 Varus deformity, not elsewhere classified, right ankle; M77.41 Metatarsalgia, right foot; M24.071 Loose body in right ankle; I10 Essential (primary) hypertension; E78.5 Hyperlipidemia, unspecified; E66.9 Obesity, unspecified; G62.9 Polyneuropathy, unspecified
CPT/HCPCS: 27870; 20902; 27685; 64450; 73610; 76000; J0690; J1100; J1885; J2250; J2405; J2704; J3010

== ENCOUNTER → 2020-12-22 15:03 | Outpatient (CLI) | payer MEDICARE, OTHER, SELFPAY ==
[2020-12-22] MEDS: COVID-19 VACC, Ad26(JANSSEN)/PF 0.5 ML IM (15:17)
== END ==
PROVIDERS: PCP Family Medicine; Visit Provider Internal Medicine
DX: Z23 Encounter for immunization (principal)
CPT/HCPCS: 0031A; 91303

== ENCOUNTER → 2021-08-26 13:17 | Outpatient (CLI) | payer MEDICARE, OTHER, SELFPAY ==
--- NOTE | 2021-08-26 | DI.RAD.S_ITS ---
PROCEDURE: XR CERVICAL SPINE 2V OR 3V INDICATIONS: CERVICAL PAIN TECHNIQUE: 3 view(s) of the cervical spine were acquired. COMPARISON: [facility], , MRI C-SPINE W/O CONTRAST, 11/30/2005, 13:20. FINDINGS: Bones: No fractures or dislocations to the C6 level. The lateral masses of C1 appear intact on the odontoid view. No suspicious bony lesions. There is iwmq-eu-ynuiiics degenerative disc disease at C3-C4, C4-C5 and C5-C6. Soft tissues: No prevertebral soft tissue swelling. IMPRESSION: Jskq-dh-xihdllas degenerative disease. If there is radiculopathy symptom, a repeat MRI is suggested. Dictated by: Darian Yoder M.D. on 08/26/2021 at 17:10 Approved by: Darian Yoder M.D. on 08/26/2021 at 17:14
== END ==
PROVIDERS: PCP Family Medicine; Referring Provider Family Medicine; Visit Provider Family Medicine
DX: M50.11 Cervical disc disorder with radiculopathy, high cervical region (principal)
CPT/HCPCS: 72040

== ENCOUNTER → 2021-11-09 08:49 | Outpatient (CLI) | payer MEDICARE, OTHER, SELFPAY ==
--- NOTE | 2021-11-09 10:20 | DI.ECHO.S_ITS ---
+ + :Name: JOSE ALBERTO VELÁZQUEZ Study Date: 11/09/2021 Height: 67 in : :[facility] ReadingLocation: Weight: 208 lb : : Gender: Male BSA: 2.1 m2 : :: 1940 Age: 81 yrs BP: 150/80 mmHg: :Reason For Study: Bradycardia : :Ordering Physician: Dr. Lares : :Kevin Performed By: Collins Delgado : :Referring: Dr. Luda Brown : + + Interpretation Summary Normal left ventricle size with ejection fraction 60-65%. The aortic valve is moderately calcified. Mild mitral annular calcification. Procedure: A two-dimensional transthoracic echocardiogram with color flow and Doppler was performed. There is no prior echocardiogram noted for this patient. The apical views were difficult to obtain and are suboptimal in quality. The patient was in normal sinus rhythm during the exam. Left Ventricle: The left ventricle is normal in size and wall thickness. The ejection fraction is estimated to be 60-65%. There are no focal wall motion abnormalities. Right Ventricle: The right ventricle is normal in size and function. Atria: The left atrial size is normal. Borderline right atrial enlargement. There is no Doppler evidence for an interatrial shunt. Mitral Valve: The mitral valve is normal. There is mild mitral annular calcification. There is trace mitral regurgitation. Aortic Valve: The aortic valve is trileaflet. The aortic valve opens well. The aortic valve is moderately calcified. There is trace aortic regurgitation. Tricuspid Valve: The tricuspid valve is normal. There is a trace or physiologic amount of tricuspid regurgitation. Pulmonary artery pressures cannot be estimated because of the lack of a measurable TR jet velocity but the IVC suggests a CVP of around 8 mmHg. Pulmonic Valve: The pulmonic valve is normal in structure and function. Great Vessels: The aortic root is normal size. The ascending aorta is normal in size. The aortic arch is normal in size. The IVC is of normal diameter and collapses less than 50% with a sniff. This suggests a right atrial pressure of 8 mm Hg. Pericardium/ Pleura There is no pericardial effusion. There is an anterior echo-free space consistent with a fat pad. There is no pleural effusion. MMode/2D Measurements & Calculations LVIDd: 4.9 cm LVOT diam: 2.4 cm LVIDs: 3.4 cm Ao root diam: 3.4 cm FS: 30.6 % asc Aorta Diam: 3.2 cm IVSd: 0.90 cm Ao Arch Diam (Prox Trans): 2.8 cm LVPWd: 0.90 cm LV medellin. diameter/BSA (cm/m^2): 2.4 LV sys. diameter/BSA (cm/m^2): 1.7 LA A2 area: 20.0 cm2 RA long axis: 4.7 cm LA A4 area: 18.0 cm2 RA area: 15.7 cm2 LA length (vol): 5.7 cm RA vol: 44.8 ml LA vol: 53.1 ml RA : 21.8 ml/m2 LA vol index: 25.9 ml/m2 IVC diam: 1.8 cm TAPSE_phl: 2.8 cm Doppler Measurements & Calculations Ao V2 max: 143.0 cm/sec LVOT Max Humphrey: 94.6 cm/sec Ao V2 mean: 109.0 cm/sec LV V1 max P.6 mmHg Ao max P.0 mmHg LV V1 VTI: 24.4 cm Ao mean P.0 mmHg SANDY(I,D): 3.1 cm2 Ao V2 VTI: 35.2 cm SANDY(V,D): 3.0 cm2 sev ratio: 0.69 SANDY indexed to BSA (cm^2/m^2): 1.5 MV E max humphrey: 70.7 cm/sec PA V2 max: 75.1 cm/sec MV A max humphrey: 54.8 cm/sec PA V2 mean: 58.9 cm/sec MV E/A: 1.3 PA mean P.0 mmHg Med Peak E' Humphrey: 8.5 cm/sec PA pr(Accel): 30.0 mmHg E/E' med: 8.3 Lat Peak E' Humphrey: 7.5 cm/sec E/E' lat: 9.5 E/e' average: 8.9 MV dec time: 0.23 sec SV(LVOT): 110.4 ml AV VR_phl: 0.66 SANDY(VTI)/BSA_phl: 1.5 MV P1/2t-pr_phl: 68.0 msec Electronically signed by: Julia Maria on Reading Physician:11/09/2021 12:29 PM
== END ==
PROVIDERS: PCP Family Medicine; Referring Provider Family Medicine; Visit Provider Family Medicine
DX: R00.1 Bradycardia, unspecified (principal)
CPT/HCPCS: 93306

== ENCOUNTER → 2024-03-27 | Outpatient (CLI) | payer MEDICARE, OTHER, SELFPAY ==
--- NOTE | 2024-03-27 | DI.RAD.S_ITS ---
PROCEDURE: XR HIP W PEL IF DONE CLAIR MIN 4V INDICATIONS: BILATERAL LOW BACK PAIN TECHNIQUE: AP pelvis with lateral view(s) of both hip(s). COMPARISON: [facility], CR, XR LUMBAR SPINE 2-3V, 03/27/2024, 12:19. FINDINGS: Bones: No fractures or dislocations. Pelvic ring appears intact. No suspicious bony lesions. Mild osteoarthritic changes in hips and sacroiliac joints bilaterally. Soft tissues: The visualized bowel gas pattern is normal. No suspicious soft tissue calcifications. IMPRESSION: Mild osteoarthritis. Dictated by: Darian Yoder M.D. on 03/27/2024 at 16:33 Approved by: Darian Yoder M.D. on 03/27/2024 at 16:35
--- NOTE | 2024-03-27 13:01 | DI.RAD.S_ITS ---
PROCEDURE: XR LUMBAR SPINE 2-3V INDICATIONS: BACK PAIN/HIP PAIN TECHNIQUE: 3 views of the lumbar spine were acquired. COMPARISON: [facility], CT, CT KIDNEY URETER BLADDER (KUB), 01/22/2019, 9:42. MR, L-SPINE WITHOUT CONTRAST, 02/19/2013, 10:53. FINDINGS: Bones: 5 [id number] vertebrae are present. There is normal bony alignment. No vertebral body compression fractures. No suspicious bony lesions. Multilevel degenerative disc disease, moderate at L4-L5 and L5-S1, mild at other levels. Moderate facet arthropathy at L3-L4, L4-L5 and L5-S1. Soft tissues: Overlying bowel gas pattern is normal. Severe atherosclerotic calcifications. Question severe aortic stenosis at the aortic bifurcation. IMPRESSION: 1. No acute bony abnormality. 2. 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 3. Severe atherosclerotic calcifications. 4. Question severe aortic stenosis at the bifurcation. Dictated by: Darian Yoder M.D. on 03/27/2024 at 16:35 Approved by: Darian Yoder M.D. on 03/28/2024 at 8:39
== END ==
PROVIDERS: PCP Family Medicine; Referring Provider Family Medicine; Visit Provider Family Medicine
DX: M16.0 Bilateral primary osteoarthritis of hip (principal); M25.551 Pain in right hip; M51.36 Other intervertebral disc degeneration, lumbar region; M51.37 Other intervertebral disc degeneration, lumbosacral region; M47.816 Spondylosis without myelopathy or radiculopathy, lumbar region; M47.817 Spondylosis without myelopathy or radiculopathy, lumbosacral region; M54.50 Low back pain, unspecified
CPT/HCPCS: 72100; 73522